=== PATIENT | female | born 1980 | race Caucasian/White ===

== ENCOUNTER 2022-07-10 15:10 | Outpatient (CLI) | payer OTHER | END 2022-07-10 16:43 | disposition home or self-care (01) | LOC: NST 15:10 | PROVIDERS: ATTEND Obstetrics & Gynecology Gynecology | DX: Z34.83 Encounter for supervision of other normal pregnancy, third trimester (principal) ==

== ENCOUNTER 2022-07-24 12:05 | Outpatient (CLI) | payer OTHER | END 2022-07-24 12:59 | disposition home or self-care (01) | LOC: NST 12:05 | PROVIDERS: ATTEND Obstetrics & Gynecology Gynecology | DX: Z34.83 Encounter for supervision of other normal pregnancy, third trimester (principal) ==

== ENCOUNTER 2022-08-20 14:15 | Inpatient (IN) | payer OTHER ==
[~2022-08-20] VITALS: Ht 172.7 cm; Wt 84.8 kg
[2022-09-02] MEDS ORDERED: PRENATAL TABLE1 EAC1 PO (13:37)
[2022-09-02] MEDS ORDERED: BAYER CHILDREN'81 MG PO (13:37)
== END 2022-09-05 12:24 | disposition home or self-care (01) | DRG 807 ==
LOC: LDR 08-27 14:15 → OB/GYN 09-03 06:57 → LDR 09-03 08:23 → OB/GYN 09-03 22:28
PROVIDERS: ADMIT Obstetrics & Gynecology Maternal & Fetal Medicine; ATTEND Obstetrics & Gynecology Maternal & Fetal Medicine
PROC: 4A1HXCZ Monitoring of Products of Conception, Cardiac Rate, External Approach (ICD-10-PCS; 2022-09-02)
PROC: 10E0XZZ Delivery of Products of Conception, External Approach (ICD-10-PCS; principal; 2022-09-03)
PROC: 3E033VJ Introduction of Other Hormone into Peripheral Vein, Percutaneous Approach (ICD-10-PCS; 2022-09-03)
DX: O24.420 Gestational diabetes mellitus in childbirth, diet controlled (principal); Z37.0 Single live birth; Z3A.40 40 weeks gestation of pregnancy; Z20.822 Contact with and (suspected) exposure to COVID-19

== ENCOUNTER 2022-08-22 09:51 | Outpatient (CLI) | payer OTHER | END 2022-08-22 11:51 | disposition home or self-care (01) | LOC: NST 09:51 | PROVIDERS: ATTEND Obstetrics & Gynecology Gynecology | DX: Z34.83 Encounter for supervision of other normal pregnancy, third trimester (principal) ==

== ENCOUNTER 2022-08-26 14:49 | Outpatient (CLI) | payer OTHER | END 2022-08-26 16:37 | disposition home or self-care (01) | LOC: NST 14:49 | PROVIDERS: ATTEND Obstetrics & Gynecology Gynecology | DX: Z34.83 Encounter for supervision of other normal pregnancy, third trimester (principal) ==

== ENCOUNTER 2022-08-29 08:05 | Outpatient (CLI) | payer OTHER | END 2022-08-29 08:35 | disposition home or self-care (01) | LOC: NST 08:05 | PROVIDERS: ATTEND Obstetrics & Gynecology Gynecology | DX: Z34.83 Encounter for supervision of other normal pregnancy, third trimester (principal) ==